=== PATIENT | female | born 1985 | race Caucasian/White ===

== ENCOUNTER 2017-05-23 16:08 | Emergency (ER) | payer OTHER ==
[~2017-05-23] VITALS: Wt 52.2 kg
[~2017-05-23 16:08] MED LIST: ALBUTEROL0.09 MG/A2 INH; ALBUTEROL2.5 MG/0.5 NEB; AMOXICILLIN500 MG PO; ATARAX,VISTARIL50 MG PO; AUGMENTIN 875875 MG PO; BACTRIM DS 8001 TA1 PO; BIAXIN500 MG PO; BUFEN200 MG; BUPRENORPHINE HY8 MG SL; BUPRENORPHINE-N1 TAB PO; CELEXA10 MG PO; CELEXA20 MG PO; CITALOPRAM10 MG PO; CLARITIN10 MG PO; CLEOCIN HCL300 MG PO; CLEOCIN150 MG PO; DICLOFENAC POTA50 MG PO; FLEXERIL10 MG PO; FLEXERIL5 MG PO; Fiorinal,Butalb1 TAB PO; GABAPENTIN600 MG PO; GABAPENTIN800 MG PO; HYDROCODONE BIT1 T11 PO; IBU800 MG PO; MOTRIN800 MG PO; NEURONTIN600 MG PO; NEURONTIN800 MG PO; NKHM; ONDANSETRON HYDR4 M1 PO; PENICILLIN VK500 MG PO; SINEMET 25-100M1 TAB PO; SUBOXONE 8 MG-1 EACH SL; TORADOL10 MG PO; TRAMADOL HCL50 MG PO; VICODIN 5/500 505 MG PO; VICODIN 500 MG-1 TAB PO; VISTARIL50 MG PO; ZOFRAN ODT4 MG SL; ZOFRAN4 MG PO; ZYRTEC-D 12HR 51 TER PO
[2017-05-23] MEDS ORDERED: SUBUTEX PO (16:24)
== END 2017-05-23 16:47 | disposition home or self-care (01) ==
LOC: ED 16:08
DX: Z00.8 Encounter for other general examination (principal); R21 Rash and other nonspecific skin eruption; F17.200 Nicotine dependence, unspecified, uncomplicated; Z98.890 Other specified postprocedural states; Z88.1 Allergy status to other antibiotic agents; Z91.013 Allergy to seafood; Z88.8 Allergy status to other drugs, medicaments and biological substances

== ENCOUNTER 2017-08-26 11:35 | Emergency (ER) | payer OTHER ==
[~2017-08-26] VITALS: Ht 170.1 cm; Wt 45.4 kg
[~2017-08-26 11:35] MED LIST changes: +SUBUTEX PO
[2017-08-26 13:47] LABS: BASO # 0.1 10*3/uL (0.0-0.1); BASO % 1.4 % (0.0-1.0); EOS # 0.1 10*3/uL (0.0-0.4); HEMATOCRIT 38.7 % (37.0-47.0); HEMOGLOBIN 12.6 g/dl (12.0-16.0); LYMPH # 2.1 10*3/uL (1.3-4.4); LYMPH % 42.5 % (27.0-41.0); MEAN CELL VOLUME 85.4 fl (81.0-99.0); MEAN CORPUSCULAR HGB 27.8 pg (27.0-31.0); MEAN CORPUSCULAR HGB CONC 32.6 g/dl (33.0-37.0); MEAN PLATELET VOLUME 10.3 fl (9.6-12.3); MONO # 0.3 10*3/uL (0.1-1.0); MONO % 5.5 % (3.0-9.0); NEUT # 2.4 10*3/uL (2.3-7.9); NEUT % 48.4 % (47.0-73.0); PLATELET COUNT AUTOMATED 234 10*3/uL (130-400); RED BLOOD COUNT 4.53 10*6/uL (4.10-5.10); RED CELL DISTRI WIDTH 14.7 % (0-14.5); WHITE BLOOD COUNT 4.9 10*3/uL (4.8-10.8)
[2017-08-26] MEDS ORDERED: MEDROL DOSEPAK4 MG PO (13:57)
[2017-08-26] MEDS ORDERED: CYCLOBENZAPRINE10 MG PO (13:57)
[2017-08-26 14:02] LABS: ALBUMIN 3.4 gm/dl (3.1-4.5); ALKALINE PHOSPHATASE 72 U/L (45-117); BUN 10 mg/dl (7-24); CHLORIDE 108 mmol/L (98-107); CREATININE 0.63 mg/dL (0.55-1.02); POTASSIUM 3.9 mmol/L (3.5-5.1); SGOT/AST 21 IU/L (3-35); SGPT/ALT 20 U/L (12-78); SODIUM 140 mmol/L (136-145); TOTAL PROTEIN 7.4 gm/dL (6.4-8.2)
[2017-08-26 14:10] LABS: B-hCG (QUALITATIVE) NEGATIVE (NEGATIVE); THYROID STIM HORMONE (HS) 0.357 uIU/ml (0.358-4.75)
[2017-08-26 14:53] LABS: BILIRUBIN NEGATIVE (NEGATIVE); BLOOD NEGATIVE (NEGATIVE); CLARITY SL CLOUDY (CLEAR); COLOR YELLOW (YELLOW); GLUCOSE NEGATIVE (NEGATIVE); KETONE NEGATIVE (NEGATIVE); LEUKO ESTERASE NEGATIVE (NEGATIVE); NITRITE NEGATIVE (NEGATIVE)
[2017-08-26 15:06] LABS: BACTERIA 2+; WBC 0-2 wbc/hpf (0-5)
[2017-08-26] MEDS ORDERED: Meclizine25 MG PO (15:32)
[2017-08-26] MEDS ORDERED: ZOFRAN4 MG PO (15:32)
== END 2017-08-26 15:38 | disposition home or self-care (01) ==
LOC: ED 11:35
PROVIDERS: Emergency Medicine
DX: R42 Dizziness and giddiness (principal); K59.03 Drug induced constipation; F17.200 Nicotine dependence, unspecified, uncomplicated; Z88.1 Allergy status to other antibiotic agents; Z91.013 Allergy to seafood

== ENCOUNTER 2017-10-12 13:15 | Emergency (ER) | payer OTHER ==
[~2017-10-12] VITALS: Ht 170.1 cm; Wt 48.5 kg
[~2017-10-12 13:15] MED LIST changes: +CYCLOBENZAPRINE10 MG PO; +MEDROL DOSEPAK4 MG PO; +Meclizine25 MG PO
[2017-10-12] MEDS ORDERED: ZOFRAN ODT4 MG SL (14:13)
[2017-10-12] MEDS ORDERED: CLINDAMYCIN HC300 MG PO (14:13)
== END 2017-10-12 15:11 | disposition home or self-care (01) ==
LOC: ED 13:15
DX: K08.89 Other specified disorders of teeth and supporting structures (principal); R51 Headache; F17.200 Nicotine dependence, unspecified, uncomplicated; Z98.890 Other specified postprocedural states; Z88.1 Allergy status to other antibiotic agents; Z88.6 Allergy status to analgesic agent; Z88.8 Allergy status to other drugs, medicaments and biological substances; Z91.013 Allergy to seafood

== ENCOUNTER 2017-10-23 01:36 | Emergency (ER) | payer OTHER ==
[~2017-10-23] VITALS: Wt 49.9 kg
[~2017-10-23 01:36] MED LIST changes: +CLINDAMYCIN HC300 MG PO
[2017-10-23 02:07] LABS: BILIRUBIN NEGATIVE (NEGATIVE); BLOOD NEGATIVE (NEGATIVE); CLARITY SL CLOUDY (CLEAR); COLOR YELLOW (YELLOW); GLUCOSE NEGATIVE (NEGATIVE); KETONE TRACE (NEGATIVE); LEUKO ESTERASE TRACE (NEGATIVE); NITRITE NEGATIVE (NEGATIVE); PH 5.5 (5.0-9.0); SPECIFIC GRAVITY 1.015 (1.005-1.030); UROBILINOGEN 0.2 E.U./dl (0.2-1.0)
[2017-10-23] MEDS ORDERED: VIBRAMYCIN100 MG PO (02:12)
[2017-10-23] MEDS ORDERED: BACTRIM 400-801 EACH PO (02:12)
[2017-10-23 02:14] LABS: EPITHELIAL CELLS 45-50; YEAST 1+
== END 2017-10-23 02:26 | disposition home or self-care (01) ==
LOC: ED 01:36
PROVIDERS: Emergency Medicine Emergency Medical Services
DX: S70.361A Insect bite (nonvenomous), right thigh, initial encounter (principal); L02.415 Cutaneous abscess of right lower limb; F17.200 Nicotine dependence, unspecified, uncomplicated; Z98.890 Other specified postprocedural states; Z88.1 Allergy status to other antibiotic agents; Z91.013 Allergy to seafood; W57.XXXA Bitten or stung by nonvenomous insect and other nonvenomous arthropods, initial encounter; Y93.89 Activity, other specified; Y92.89 Other specified places as the place of occurrence of the external cause; Y99.9 Unspecified external cause status

== ENCOUNTER 2018-04-26 12:24 | Emergency (ER) | payer OTHER ==
[~2018-04-26] VITALS: Ht 170.1 cm; Wt 47.6 kg
[~2018-04-26 12:24] MED LIST changes: +BACTRIM 400-801 EACH PO; +VIBRAMYCIN100 MG PO
[2018-04-26] MEDS ORDERED: NAPROSYN500 MG PO (13:08)
[2018-04-26] MEDS ORDERED: SEPTDS PO (13:08)
== END 2018-04-26 14:00 | disposition home or self-care (01) ==
LOC: ED 12:24
DX: L02.612 Cutaneous abscess of left foot (principal); Z88.8 Allergy status to other drugs, medicaments and biological substances; Z88.1 Allergy status to other antibiotic agents; Z91.013 Allergy to seafood

== ENCOUNTER 2018-10-20 12:24 | Emergency (ER) | payer OTHER ==
[~2018-10-20] VITALS: Ht 170.1 cm; Wt 52.6 kg
[~2018-10-20 12:24] MED LIST changes: +NAPROSYN500 MG PO; +SEPTDS PO
[2018-10-20] MEDS ORDERED: AUGMENTIN 875875 MG PO (16:56)
[2018-10-23] MEDS ORDERED: CLINDAMYCIN HC300 MG PO (19:17)
== END 2018-10-20 17:02 | disposition home or self-care (01) ==
LOC: ED 12:24
DX: J32.0 Chronic maxillary sinusitis (principal); G89.29 Other chronic pain; G62.9 Polyneuropathy, unspecified; G40.909 Epilepsy, unspecified, not intractable, without status epilepticus; F17.200 Nicotine dependence, unspecified, uncomplicated; Z88.1 Allergy status to other antibiotic agents; Z91.013 Allergy to seafood; Z79.899 Other long term (current) drug therapy; Z79.2 Long term (current) use of antibiotics

== ENCOUNTER 2019-01-30 16:54 | Emergency (ER) | payer OTHER ==
[~2019-01-30] VITALS: Ht 170.1 cm; Wt 53.5 kg
[2019-01-30 18:42] LABS: BILIRUBIN NEGATIVE (NEGATIVE); BLOOD 3+ (NEGATIVE); CLARITY TURBID (CLEAR); COLOR YELLOW (YELLOW); GLUCOSE NEGATIVE (NEGATIVE); KETONE NEGATIVE (NEGATIVE); LEUKO ESTERASE 1+ (NEGATIVE); NITRITE POSITIVE (NEGATIVE); SPECIFIC GRAVITY >= 1.030 (1.005-1.030); UROBILINOGEN 0.2 E.U./dl (0.2-1.0)
[2019-01-30 19:19] LABS: BACTERIA 4+; EPITHELIAL CELLS 20-30; RBC TNTC rbc/hpf (0-2); WBC TNTC wbc/hpf (0-5)
[2019-04-23] MEDS ORDERED: MACROBID100 M1 PO (19:59)
== END 2019-01-30 19:53 | disposition home or self-care (01) ==
LOC: ED 16:54
PROVIDERS: Emergency Medicine
DX: O23.41 Unspecified infection of urinary tract in pregnancy, first trimester (principal); O99.331 Smoking (tobacco) complicating pregnancy, first trimester; G89.29 Other chronic pain; G40.909 Epilepsy, unspecified, not intractable, without status epilepticus; G62.9 Polyneuropathy, unspecified; Z88.1 Allergy status to other antibiotic agents; Z91.013 Allergy to seafood; Z79.2 Long term (current) use of antibiotics; Z79.899 Other long term (current) drug therapy; Z3A.13 13 weeks gestation of pregnancy

== ENCOUNTER 2019-04-08 14:15 | Emergency (ER) | payer OTHER ==
[~2019-04-08] VITALS: Ht 170.1 cm; Wt 53.5 kg
[2019-04-23] MEDS ORDERED: MACROBID100 M1 PO (19:59)
== END 2019-04-08 14:45 | disposition home or self-care (01) ==
LOC: ED 14:15
DX: O26.892 Other specified pregnancy related conditions, second trimester (principal); R73.9 Hyperglycemia, unspecified; H53.8 Other visual disturbances; R25.1 Tremor, unspecified; F17.200 Nicotine dependence, unspecified, uncomplicated; Z3A.16 16 weeks gestation of pregnancy; Z91.013 Allergy to seafood; Z88.1 Allergy status to other antibiotic agents

== ENCOUNTER 2019-06-26 16:44 | Emergency (ER) | payer OTHER ==
[~2019-06-26] VITALS: Ht 170.1 cm; Wt 54.0 kg
[~2019-06-26 16:44] MED LIST changes: +MACROBID100 M1 PO
[2019-06-26 19:06] LABS: BILIRUBIN 1+ (NEGATIVE); BLOOD TRACE-INTACT (NEGATIVE); CLARITY SL CLOUDY (CLEAR); GLUCOSE NEGATIVE (NEGATIVE); KETONE TRACE (NEGATIVE); LEUKO ESTERASE NEGATIVE (NEGATIVE); NITRITE POSITIVE (NEGATIVE); SPECIFIC GRAVITY 1.025 (1.005-1.030)
[2019-06-26 19:07] LABS: COLOR STRAW (YELLOW)
[2019-06-26 19:11] LABS: ALBUMIN 2.4 gm/dl (3.1-4.5); ALKALINE PHOSPHATASE 145 U/L (45-117); BUN 6 mg/dl (7-24); CHLORIDE 107 mmol/L (98-107); CREATININE 0.47 mg/dL (0.55-1.02); LIPASE 126 U/L (73-393); POTASSIUM 3.9 mmol/L (3.5-5.1); SGOT/AST 13 IU/L (3-35); SGPT/ALT 12 U/L (12-78); SODIUM 138 mmol/L (136-145); TOTAL PROTEIN 6.6 gm/dL (6.4-8.2)
[2019-06-26 19:27] LABS: BACTERIA 1+; EPITHELIAL CELLS 41-50; RBC 0-2 rbc/hpf (0-2); WBC 0-2 wbc/hpf (0-5)
[2019-06-26 19:34] LABS: BASO % 0.5 % (0.0-1.0); EOS # 0.1 10*3/uL (0.0-0.4); EOS % 1.3 % (1.0-4.0); HEMATOCRIT 27.8 % (37.0-47.0); HEMOGLOBIN 9.3 g/dl (12.0-16.0); LYMPH # 2.5 10*3/uL (1.3-4.4); LYMPH % 32.5 % (27.0-41.0); MEAN CELL VOLUME 87.1 fl (81.0-99.0); MEAN CORPUSCULAR HGB 29.2 pg (27.0-31.0); MEAN CORPUSCULAR HGB CONC 33.5 g/dl (33.0-37.0); MEAN PLATELET VOLUME 10.5 fl (9.6-12.3); MONO # 0.6 10*3/uL (0.1-1.0); MONO % 7.5 % (3.0-9.0); NEUT # 4.3 10*3/uL (2.3-7.9); NEUT % 56.2 % (47.0-73.0); PLATELET COUNT AUTOMATED 258 10*3/uL (130-400); RED BLOOD COUNT 3.19 10*6/uL (4.10-5.10); RED CELL DISTRI WIDTH 13.9 % (0-14.5); WHITE BLOOD COUNT 7.6 10*3/uL (4.8-10.8)
== END 2019-06-26 19:40 | disposition left against medical advice (07) ==
LOC: ED 16:44
PROVIDERS: Physician Assistant
DX: O26.892 Other specified pregnancy related conditions, second trimester (principal); R42 Dizziness and giddiness; R22.2 Localized swelling, mass and lump, trunk; O12.02 Gestational edema, second trimester; O99.352 Diseases of the nervous system complicating pregnancy, second trimester; G40.909 Epilepsy, unspecified, not intractable, without status epilepticus; O99.332 Smoking (tobacco) complicating pregnancy, second trimester; Z3A.26 26 weeks gestation of pregnancy; Z88.1 Allergy status to other antibiotic agents; Z91.013 Allergy to seafood; Z79.2 Long term (current) use of antibiotics; Z79.899 Other long term (current) drug therapy

== ENCOUNTER 2019-11-15 13:16 | Emergency (ER) | payer OTHER ==
[~2019-11-15] VITALS: Ht 170.1 cm; Wt 49.9 kg
[2019-11-15] MEDS ORDERED: Motrin,Rufen800 MG PO (15:22)
== END 2019-11-15 15:25 | disposition home or self-care (01) ==
LOC: ED 13:16
DX: S40.011A Contusion of right shoulder, initial encounter (principal); G62.9 Polyneuropathy, unspecified; Z72.0 Tobacco use; Z88.1 Allergy status to other antibiotic agents; Z88.6 Allergy status to analgesic agent; Z91.013 Allergy to seafood; W10.8XXA Fall (on) (from) other stairs and steps, initial encounter; Y93.89 Activity, other specified; Y92.89 Other specified places as the place of occurrence of the external cause; Y99.8 Other external cause status

== ENCOUNTER 2019-11-16 22:27 | Emergency (ER) | payer OTHER ==
[~2019-11-16] VITALS: Ht 170.1 cm; Wt 49.9 kg
[~2019-11-16 22:27] MED LIST changes: +Motrin,Rufen800 MG PO
== END 2019-11-17 00:41 | disposition home or self-care (01) ==
LOC: ED 22:27
DX: S46.911A Strain of unspecified muscle, fascia and tendon at shoulder and upper arm level, right arm, initial encounter (principal); S40.011A Contusion of right shoulder, initial encounter; F41.9 Anxiety disorder, unspecified; J45.909 Unspecified asthma, uncomplicated; E11.9 Type 2 diabetes mellitus without complications; M19.90 Unspecified osteoarthritis, unspecified site; F17.200 Nicotine dependence, unspecified, uncomplicated; Z91.013 Allergy to seafood; Z88.8 Allergy status to other drugs, medicaments and biological substances; Z88.1 Allergy status to other antibiotic agents; Z88.6 Allergy status to analgesic agent; Z79.899 Other long term (current) drug therapy; W50.0XXA Accidental hit or strike by another person, initial encounter; Y93.89 Activity, other specified; Y92.89 Other specified places as the place of occurrence of the external cause; Y99.8 Other external cause status

== ENCOUNTER 2020-01-04 23:33 | Emergency (ER) | payer OTHER ==
[~2020-01-04] VITALS: Wt 52.6 kg
[~2020-01-04 23:33] MED LIST changes: -DOXYCYCLINE100 M3 PO
[2020-01-05] MEDS ORDERED: CLINDAMYCIN HC300 MG PO (00:02)
[2020-01-05] MEDS ORDERED: DOXYCYCLINE100 M3 PO (00:06)
== END 2020-01-05 00:28 | disposition home or self-care (01) ==
LOC: ED 23:33
DX: L02.415 Cutaneous abscess of right lower limb (principal); G89.29 Other chronic pain; J45.909 Unspecified asthma, uncomplicated; E11.40 Type 2 diabetes mellitus with diabetic neuropathy, unspecified; G40.909 Epilepsy, unspecified, not intractable, without status epilepticus; Z88.1 Allergy status to other antibiotic agents; Z91.013 Allergy to seafood; Z79.899 Other long term (current) drug therapy

== ENCOUNTER → 2020-01-04 | Outpatient (CLI) | payer OTHER ==
[~2020-01-04] MED LIST changes: +DOXYCYCLINE100 M3 PO
[2020-01-05 00:47] LABS: BASO # 0.1 10*3/uL (0.0-0.1); BASO % 0.9 % (0.0-1.0); EOS # 0.2 10*3/uL (0.0-0.4); EOS % 2.8 % (1.0-4.0); HEMATOCRIT 39.5 % (37.0-47.0); HEMOGLOBIN 12.1 g/dl (12.0-16.0); LYMPH # 2.2 10*3/uL (1.3-4.4); LYMPH % 34.1 % (27.0-41.0); MEAN CELL VOLUME 80.9 fl (81.0-99.0); MEAN CORPUSCULAR HGB 24.8 pg (27.0-31.0); MEAN CORPUSCULAR HGB CONC 30.6 g/dl (33.0-37.0); MEAN PLATELET VOLUME 9.8 fl (9.6-12.3); MONO # 0.5 10*3/uL (0.1-1.0); MONO % 7.6 % (3.0-9.0); NEUT # 3.5 10*3/uL (2.3-7.9); NEUT % 54.1 % (47.0-73.0); PLATELET COUNT AUTOMATED 267 10*3/uL (130-400); RED BLOOD COUNT 4.88 10*6/uL (4.10-5.10); RED CELL DISTRI WIDTH 17.1 % (0-14.5); WHITE BLOOD COUNT 6.5 10*3/uL (4.8-10.8)
[2020-01-05 01:05] LABS: ALBUMIN 3.8 gm/dl (3.1-4.5); ALKALINE PHOSPHATASE 101 U/L (45-117); BUN 10 mg/dl (7-24); CHLORIDE 104 mmol/L (98-107); CREATININE 0.74 mg/dL (0.55-1.02); POTASSIUM 3.9 mmol/L (3.5-5.1); SGOT/AST 15 IU/L (3-35); SGPT/ALT 21 U/L (12-78); SODIUM 137 mmol/L (136-145); TOTAL PROTEIN 9.1 gm/dL (6.4-8.2)
[2020-01-06 05:04] LABS: HEPATITIS B SURFACE AG Negative (Negative)
[2020-01-08 15:09] LABS: HEPATITIS C VIRUS ANTIBODY 1.2 s/co (0.0-0.9)
== END | disposition home or self-care (01) ==
LOC: LAB 23:36
PROVIDERS: Family Medicine
DX: F11.20 Opioid dependence, uncomplicated (principal)

== ENCOUNTER 2020-03-16 14:09 | Emergency (ER) | payer OTHER ==
[~2020-03-16] VITALS: Ht 170.1 cm; Wt 53.1 kg
[~2020-03-16 14:09] MED LIST changes: +DOXYCYCLINE100 M3 PO
[2020-03-16] MEDS ORDERED: AMOXICILLIN500 M2 PO (17:27)
[2020-03-16] MEDS ORDERED: ATARAX,VISTARIL50 MG PO (17:33)
== END 2020-03-16 17:42 | disposition home or self-care (01) ==
LOC: ED 14:09
DX: J02.9 Acute pharyngitis, unspecified (principal); F41.9 Anxiety disorder, unspecified; Z91.013 Allergy to seafood; Z88.8 Allergy status to other drugs, medicaments and biological substances; Z79.899 Other long term (current) drug therapy

== ENCOUNTER → 2020-07-26 | Outpatient (CLI) | payer OTHER ==
[~2020-07-26] MED LIST changes: +AMOXICILLIN500 M2 PO
== END | disposition home or self-care (01) ==
LOC: COVID19 00:53
PROVIDERS: ATTEND Internal Medicine
DX: Z20.828 Contact with and (suspected) exposure to other viral communicable diseases (principal)

== ENCOUNTER 2020-08-30 22:53 | Emergency (ER) | payer OTHER ==
[~2020-08-30] VITALS: Ht 170.1 cm; Wt 57.2 kg
== END 2020-08-31 01:00 | disposition home or self-care (01) ==
LOC: ED 22:53
DX: S66.901A Unspecified injury of unspecified muscle, fascia and tendon at wrist and hand level, right hand, initial encounter (principal); Z88.8 Allergy status to other drugs, medicaments and biological substances; Z79.899 Other long term (current) drug therapy; X58.XXXA Exposure to other specified factors, initial encounter; Y93.89 Activity, other specified; Y92.89 Other specified places as the place of occurrence of the external cause; Y99.8 Other external cause status